=== PATIENT | female | born 1995 | race Two or more races ===

== ENCOUNTER 2025-04-13 20:02 | Emergency (ER) | payer OTHER ==
[~2025-04-13] VITALS: Ht 172.7 cm; Wt 116.8 kg
[2025-04-13 20:07] VITALS: TEMP 98.1
[2025-04-13] MEDS: IBUPROFEN 600 MG TABLET PO ONE (21:12)
[2025-04-13 22:30] VITALS: BP 119/68; PULSE 72; RESP 16; O2SAT 97
== END 2025-04-13 23:18 | disposition home or self-care (01) ==
LOC: EMS 20:02
DX: S92.351A Displaced fracture of fifth metatarsal bone, right foot, initial encounter for closed fracture (principal); J45.909 Unspecified asthma, uncomplicated; Z90.49 Acquired absence of other specified parts of digestive tract; X50.1XXA Overexertion from prolonged static or awkward postures, initial encounter; Y93.89 Activity, other specified; Y92.89 Other specified places as the place of occurrence of the external cause; Y99.8 Other external cause status
CPT/HCPCS: 99284; 73610-TC; 73630-TC; Z7502; Z7610